=== PATIENT | male | born 1940 | race Caucasian/White ===

== ENCOUNTER 2017-12-20 14:44 | Inpatient (IN) ==
[2017-12-20] MEDS ORDERED: *HR* OxyCODONE Immed Rel 5 MG TABLET PO PRN (16:22)
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
[2017-12-20] MEDS: *HR* OxyCODONE Immed Rel 5 MG TABLET PO PRN (22:25)
[2017-12-20] MEDS: Budesonide/Formoterol 160/4.5 MDI IH SCH (22:25)
[2017-12-21] MEDS: *HR* OxyCODONE Immed Rel 5 MG TABLET PO PRN ×3 (03:48→22:13)
[2017-12-21 06:03] LABS: Basophils % 0.4 %; Eosinophils # 0.2 K/mcL (0.0-0.6); Eosinophils % 2.4 %; Hemoglobin 9.7 g/dL (12.9-16.9); Immature Granulocytes % 0.5 % (0-4); Lymphocytes # 1.3 K/mcL (0.6-4.6); Lymphocytes % 15.2 %; Mean Corpuscular HGB Conc 34.6 g/dL (31.6-35.5); Mean Corpuscular Hemoglobin 30.8 pg (28.0-33.3); Mean Corpuscular Volume 88.9 fL (83.0-100.0); Mean Platelet Volume 10.8 fL (9.4-12.4); Monocytes # 0.9 K/mcL (0.0-1.3); Monocytes % 10.4 %; Neutrophils # 5.9 K/mcL (1.6-8.9); Platelet Count 197 K/mcL (140-400); Red Blood Count 3.15 M/mcL (4.19-5.50); Red Cell Distribution Width 13.2 % (11.5-14.5); Segmented Neutrophils % 71.1 %
[2017-12-21 06:06] LABS: INR 1.2; Prothrombin Time 13.2 Seconds (9.4-12.1)
[2017-12-21 06:09] LABS: Activated Partial Thrombo Time 30.4 Seconds (26.0-36.0)
[2017-12-21 06:18] LABS: BUN/Creatinine Ratio 15 (6-26); Blood Urea Nitrogen 17 mg/dL (8-23); Calcium 8.4 mg/dL (8.6-10.3); Carbon Dioxide 28 mEq/L (23-29); Chloride 98 mEq/L (98-107); Glucose 131 mg/dL (70-105); Osmolality,Calculated 281 (280-300); Potassium 3.7 mEq/L (3.5-5.1); Sodium 134 mEq/L (136-145); eGFR For African Americans > 60 (> 60); eGFR For Non-African Americans > 60 (> 60)
[2017-12-21] MEDS: *HR* Enoxaparin 40 MG/0.4 ML SYRINGE SQ SCH (06:57)
[2017-12-21] MEDS: Finasteride 5 MG TABLET PO SCH (08:29)
[2017-12-21] MEDS: Ascorbic Acid 500 MG TABLET PO SCH (08:31)
[2017-12-21] MEDS: Cyanocobalamin (B-12) 1,000 MCG TABLET PO SCH (08:31)
[2017-12-21] MEDS: Aspirin Enteric Coated 81 MG Tablet PO SCH (08:31)
[2017-12-21] MEDS: Multivit/Ca/Min/Fe/FA 1 TAB TABLET PO SCH (08:31)
[2017-12-21] MEDS: Garlic [Odor Free Garlic] 100 MG PO SCH (08:33)
[2017-12-21] MEDS: Budesonide/Formoterol 160/4.5 MDI IH SCH ×2 (11:07→22:13)
--- NOTE | 2017-12-21 13:48 | Internal Med Progress Note ---
Date of Encounter: 12/21/17 Time of Encounter: 13:46 - Assessment and plan (1) Status post total knee replacement, left Current Visit: No Status: Acute Assessment and plan: Stable postoperatively. We will continue with therapies as planned. (2) History of aortic valve replacement Current Visit: No Status: Chronic Assessment and plan: Bovine of 12 years age. Clinically stable. We will continue home regimen and follow. (3) HTN (hypertension) Current Visit: No Status: Chronic Assessment and plan: Clinically stable. We will continue home regimen and follow. Qualifiers: Hypertension type: essential hypertension Qualified Code(s): I10 - Essential (primary) hypertension (4) BPH (benign prostatic hyperplasia) Current Visit: No Status: Chronic Assessment and plan: Will consider removal of Paredes and bladder trial, now that he has had a bowel movement. Qualifiers: Lower urinary tract symptom presence: symptoms absent Qualified Code(s): N40.0 - Benign prostatic hyperplasia without lower urinary tract symptoms (5) GERD (gastroesophageal reflux disease) Current Visit: No Status: Chronic Assessment and plan: Clinically stable. We will continue home regimen and follow. Qualifiers: Esophagitis presence: esophagitis presence not specified Qualified Code(s) : K21.9 - Gastro-esophageal reflux disease without esophagitis (6) Asthma Current Visit: No Status: Chronic Assessment and plan: Clinically stable. We will continue home regimen and follow. Qualifiers: Asthma severity: unspecified severity Asthma persistence: unspecified Asthma complication type: unspecified Qualified Code(s): J45.909 - Unspecified asthma, uncomplicated (7) Peripheral neuropathy Current Visit: No Status: Chronic Assessment and plan: Clinically stable. We will continue home regimen and follow. Qualifiers: Peripheral neuropathy type: polyneuropathy, unspecified Qualified Code(s): G62.9 - Polyneuropathy, unspecified (8) Anemia Current Visit: Yes Status: Acute Assessment and plan: Acute postoperative blood loss. Mild. Will follow. Qualifiers: Anemia type: other cause Other causes of anemia: acute posthemorrhagic Qualified Code(s): D62 - Acute posthemorrhagic anemia - Time Spent With Patient 25 - 35 minutes - Subjective Interval history: Patient is feeling relatively well. He feels his pain is adequately controlled. He denies new complaints. He still not had a bowel movement, even though he took prune juice this morning. He prefers to hold off on his rectal suppositories. Addendum: Nursing states that he had a bowel movement, this afternoon. - Constitutional Vitals: Temp Pulse Resp BP Pulse Ox 99.4 F 79 18 145/76 92 12/21/17 10:33 12/21/17 10:33 12/21/17 10:33 12/21/17 10:33 12/21/17 10:33 Exam: Examination: (Except as mentioned above): General: In no apparent distress. Alert and oriented 3. Nondiaphoretic. Head: Atraumatic and normocephalic. Respiratory: No use of accessory muscles. Lungs are clear throughout. Normal airflow. Cardiovascular: Regular rate and rhythm without murmur appreciated. Abdomen: Bowel sounds are normal. No hepatosplenomegaly mass or tenderness. He has a low abdominal hernia which is only seen with abdominal strain and easily reducible, spontaneously. appreciated. Obese and therefore difficult to palpate deeply. Extremities: No cyanosis clubbing or edema. No cord or calf tenderness. Skin: Warm and non-diaphoretic with no new lesions noted. Internal Medicine: Result - Labs CBC & Chem 7: 12/21/17 05:58 12/21/17 05:58 Labs: Short CBC 12/21/17 Range/Units 05:58 WBC 8.4 (4.3-11.1) K/mcL Hgb 9.7 L D (12.9-16.9) g/dL Hct 28.0 L (37.5-50.1) % Plt Count 197 (140-400) K/mcL Neutrophils # 5.9 (1.6-8.9) K/mcL BMP 12/21/17 05:58 Sodium 134 L Potassium 3.7 Chloride 98 Carbon Dioxide 28 BUN 17 Creatinine 1.17 Glucose 131 H Calcium 8.4 L - ABG Interpretation ABG results: PT/INR, D-dimer PT 13.2 Seconds (9.4-12.1) H 12/21/17 05:58 - VTE Documentation of Mechanical Device: Graduated compression elastic hosiery Consult Discharge Plan - Plan Referrals: Rivera John MD [Primary Care Provider] -
[2017-12-21] MEDS: Bisacodyl 10 MG RECTAL SUPPOSITORY RC SCH (15:48)
[2017-12-21] MEDS: Ondansetron ODT 4 MG TAB.RAPDIS SL PRN (23:09)
[2017-12-22] MEDS: *HR* Enoxaparin 40 MG/0.4 ML SYRINGE SQ SCH (06:14)
[2017-12-22] MEDS: *HR* OxyCODONE Immed Rel 5 MG TABLET PO PRN ×4 (06:18→22:33)
--- NOTE | 2017-12-22 06:54 | Internal Med Progress Note ---
Date of Encounter: 12/22/17 Time of Encounter: 06:51 - Assessment and plan (1) Status post total knee replacement, left Current Visit: No Status: Acute Assessment and plan: Because of erythema and low-grade temperature elevation and patient complaints, we will check a CBC, erythrocyte sedimentation rate, and begin empiric Keflex 500 mg 4 times a day. No therapies today based on schedule and will resume tomorrow. (2) History of aortic valve replacement Current Visit: No Status: Chronic Assessment and plan: Stable without cardiovascular signs or symptoms. (3) HTN (hypertension) Current Visit: No Status: Chronic Assessment and plan: Clinically stable. We will continue home regimen and follow. Qualifiers: Hypertension type: essential hypertension Qualified Code(s): I10 - Essential (primary) hypertension (4) BPH (benign prostatic hyperplasia) Current Visit: No Status: Chronic Assessment and plan: Will give him a trial of voiding. Qualifiers: Lower urinary tract symptom presence: symptoms absent Qualified Code(s): N40.0 - Benign prostatic hyperplasia without lower urinary tract symptoms (5) GERD (gastroesophageal reflux disease) Current Visit: No Status: Chronic Assessment and plan: Clinically stable. We will continue home regimen and follow. Qualifiers: Esophagitis presence: esophagitis presence not specified Qualified Code(s) : K21.9 - Gastro-esophageal reflux disease without esophagitis (6) Asthma Current Visit: No Status: Chronic Assessment and plan: Clinically stable. We will continue home regimen and follow. Qualifiers: Asthma severity: unspecified severity Asthma persistence: unspecified Asthma complication type: unspecified Qualified Code(s): J45.909 - Unspecified asthma, uncomplicated (7) Peripheral neuropathy Current Visit: No Status: Chronic Assessment and plan: Clinically stable. We will continue home regimen and follow. Qualifiers: Peripheral neuropathy type: polyneuropathy, unspecified Qualified Code(s): G62.9 - Polyneuropathy, unspecified (8) Anemia Current Visit: Yes Status: Acute Assessment and plan: Acute postoperative blood loss. Mild. Will follow. Qualifiers: Anemia type: other cause Other causes of anemia: acute posthemorrhagic Qualified Code(s): D62 - Acute posthemorrhagic anemia (9) Atelectasis Current Visit: Yes Status: Acute Assessment and plan: I explained use of incentive spirometry to him and told him this could be the cause of his fever. (He states that anything over 98.6 is a fever for him.) - Time Spent With Patient 25 - 35 minutes - Subjective Interval history: Patient is not feeling well, "all night." He is unable to localize many symptoms but notes that he is having right knee pain and just does not feel well. I told him that he had mild temperature elevation, he said that has a fever for me. He denies headache or chest pain, dyspnea, abdominal pain and had two bowel movement yesterday.. Patient has no complaint of chest discomfort, dyspnea, orthopnea, palpitations, nausea or vomiting, constipation or diarrhea, other changes in bowel habits, difficulty with urination, rash or itching, or other new complaints, except as mentioned above. Review of systems is otherwise unremarkable. - Constitutional Vitals: Temp Pulse Resp BP Pulse Ox 98.4 F 87 16 152/75 94 12/21/17 19:24 12/21/17 19:24 12/21/17 19:24 12/21/17 19:24 12/21/17 19:24 Exam: Examination: (Except as mentioned above): General: In no apparent distress. Alert and oriented 3. Nondiaphoretic. Head: Atraumatic and normocephalic. Respiratory: No use of accessory muscles. Lungs with bibasilar rales. Normal airflow. Cardiovascular: Regular rate and rhythm without murmur appreciated. Abdomen: Bowel sounds are normal. No hepatosplenomegaly mass or tenderness appreciated. Obese and therefore difficult to palpate deeply. Extremities: No cyanosis clubbing or edema. Right knee is not more erythematous but it is warmer than yesterday. There is no fluctuance or drainage. Wound is intact. No cord or calf tenderness. Skin: Warm and non-diaphoretic with no new lesions noted. Internal Medicine: Result - Labs CBC & Chem 7: 12/21/17 05:58 12/21/17 05:58 - ABG Interpretation ABG results: PT/INR, D-dimer PT 13.2 Seconds (9.4-12.1) H 12/21/17 05:58 - VTE Documentation of Mechanical Device: Graduated compression elastic hosiery Consult Discharge Plan - Plan Referrals: Rivera John MD [Primary Care Provider] -
[2017-12-22] MEDS: Multivit/Ca/Min/Fe/FA 1 TAB TABLET PO SCH (09:22)
[2017-12-22] MEDS: cephALEXin 500 MG CAPSULE PO SCH ×4 (09:22→22:09)
[2017-12-22] MEDS: Cyanocobalamin (B-12) 1,000 MCG TABLET PO SCH (09:22)
[2017-12-22] MEDS: Finasteride 5 MG TABLET PO SCH (09:22)
[2017-12-22] MEDS: Bisacodyl 10 MG RECTAL SUPPOSITORY RC SCH (09:23)
[2017-12-22] MEDS: Ascorbic Acid 500 MG TABLET PO SCH (09:23)
[2017-12-22] MEDS: Garlic [Odor Free Garlic] 100 MG PO SCH (09:23)
[2017-12-22] MEDS: Aspirin Enteric Coated 81 MG Tablet PO SCH (09:23)
[2017-12-22] MEDS: Budesonide/Formoterol 160/4.5 MDI IH SCH ×2 (09:29→22:34)
[2017-12-22 09:36] LABS: Basophils % 0.4 %; Eosinophils # 0.1 K/mcL (0.0-0.6); Eosinophils % 1.4 %; Immature Granulocytes % 0.4 % (0-4); Mean Corpuscular HGB Conc 34.5 g/dL (31.6-35.5); Mean Corpuscular Hemoglobin 30.6 pg (28.0-33.3); Mean Corpuscular Volume 88.7 fL (83.0-100.0); Mean Platelet Volume 10.3 fL (9.4-12.4); Monocytes # 0.8 K/mcL (0.0-1.3); Monocytes % 10.8 %; Neutrophils # 5.7 K/mcL (1.6-8.9); Platelet Count 236 K/mcL (140-400); Red Blood Count 3.27 M/mcL (4.19-5.50); Red Cell Distribution Width 13.3 % (11.5-14.5)
[2017-12-22] MEDS: Acetaminophen 325 MG TABLET PO PRN (16:57)
[2017-12-23] MEDS: *HR* OxyCODONE Immed Rel 5 MG TABLET PO PRN ×4 (04:31→20:05)
[2017-12-23] MEDS: Ondansetron ODT 4 MG TAB.RAPDIS SL PRN (04:32)
[2017-12-23] MEDS: *HR* Enoxaparin 40 MG/0.4 ML SYRINGE SQ SCH (06:13)
[2017-12-23 06:48] LABS: Basophils % 0.3 %; Eosinophils # 0.1 K/mcL (0.0-0.6); Eosinophils % 1.7 %; Hematocrit 28.3 % (37.5-50.1); Hemoglobin 9.6 g/dL (12.9-16.9); Immature Granulocytes % 0.5 % (0-4); Lymphocytes # 1.1 K/mcL (0.6-4.6); Lymphocytes % 14.2 %; Mean Corpuscular HGB Conc 33.9 g/dL (31.6-35.5); Mean Corpuscular Hemoglobin 30.3 pg (28.0-33.3); Mean Corpuscular Volume 89.3 fL (83.0-100.0); Mean Platelet Volume 10.4 fL (9.4-12.4); Monocytes # 0.9 K/mcL (0.0-1.3); Monocytes % 11.8 %; Neutrophils # 5.4 K/mcL (1.6-8.9); Platelet Count 256 K/mcL (140-400); Red Blood Count 3.17 M/mcL (4.19-5.50); Red Cell Distribution Width 13.3 % (11.5-14.5); Segmented Neutrophils % 71.5 %
[2017-12-23 07:09] LABS: BUN/Creatinine Ratio 16 (6-26); Blood Urea Nitrogen 16 mg/dL (8-23); Calcium 8.5 mg/dL (8.6-10.3); Carbon Dioxide 28 mEq/L (23-29); Chloride 99 mEq/L (98-107); Glucose 118 mg/dL (70-105); Osmolality,Calculated 274 (280-300); Potassium 4.2 mEq/L (3.5-5.1); Sodium 131 mEq/L (136-145); eGFR For African Americans > 60 (> 60); eGFR For Non-African Americans > 60 (> 60)
[2017-12-23] MEDS: Multivit/Ca/Min/Fe/FA 1 TAB TABLET PO SCH (09:16)
[2017-12-23] MEDS: Cyanocobalamin (B-12) 1,000 MCG TABLET PO SCH (09:17)
[2017-12-23] MEDS: Ascorbic Acid 500 MG TABLET PO SCH (09:17)
[2017-12-23] MEDS: cephALEXin 500 MG CAPSULE PO SCH ×4 (09:17→20:06)
[2017-12-23] MEDS: Aspirin Enteric Coated 81 MG Tablet PO SCH (09:17)
[2017-12-23] MEDS: Finasteride 5 MG TABLET PO SCH (09:17)
[2017-12-23] MEDS: Garlic [Odor Free Garlic] 100 MG PO SCH (09:18)
[2017-12-23] MEDS: Bisacodyl 10 MG RECTAL SUPPOSITORY RC SCH (09:18)
[2017-12-23] MEDS: Budesonide/Formoterol 160/4.5 MDI IH SCH ×2 (09:18→20:07)
--- NOTE | 2017-12-23 10:02 | Internal Med Progress Note ---
Date of Encounter: 12/23/17 Time of Encounter: 10:00 - Assessment and plan (1) Status post total knee replacement, left Current Visit: No Status: Acute Assessment and plan: Continue PT\OT. Will follow progress continue current pain regimen. Continue Keflex. (2) HTN (hypertension) Current Visit: No Status: Chronic Assessment and plan: Controlled with current medications. Will monitor blood pressure. Qualifiers: Hypertension type: essential hypertension Qualified Code(s): I10 - Essential (primary) hypertension - Time Spent With Patient less than 15 minutes - Subjective Interval history: Patient participating with therapy. States pain is controlled with current pain medication. Patient is on Keflex for increased drainage warmth and redness to left knee. Patient is requesting stool softener for constipation. Maintaining appetite and hydration. Denies fever, chills, nausea, vomiting or diarrhea. - Constitutional Vitals: Temp Pulse Resp BP Pulse Ox 98.9 F 69 14 142/87 93 12/23/17 07:00 12/23/17 07:00 12/23/17 07:00 12/23/17 07:00 12/23/17 07:00 General appearance: Present: A&O X 3, pleasant, no acute distress, answers questions appropriately - Head Head exam: Present: atraumatic, normocephalic - Eye Eye exam: Present: PERRL, conjuntiva pink, sclera anicteric Pupils: Present: PERRL - Neck Neck exam general surgery: Present: supple, trachea midline. Absent: lymphadenopathy - Respiratory Respiratory exam: Present: CTAB. Absent: accessory muscle use, rales, rhonchi, wheezes - Cardiovascular Cardiovascular exam: Present: RRR, +S1, +S2. Absent: diastolic murmur, gallop, rubs, systolic murmur - GI/Abdominal GI/Abdominal exam: Present: normal bowel sounds, soft, no peritoneal signs. Absent: distended, tenderness - Extremities Exam Extremities exam: Present: warm, radial pulses palpable and symmetrical. Absent : calf tenderness, cyanotic, pedal edema - Neurological Exam Neurological exam: Present: CN II-XII intact, oriented X3, no focal deficits. Absent: pronater drift, facial droop, speech deficit - Skin Skin exam: Present: dry, intact Additional comments: Left knee incision with moderate amount of drainage. Surrounding warmth redness , edema and ecchymosis. Internal Medicine: Result - Labs CBC & Chem 7: 12/23/17 06:15 12/23/17 06:15 Labs: Short CBC 12/23/17 Range/Units 06:15 WBC 7.6 (4.3-11.1) K/mcL Hgb 9.6 L (12.9-16.9) g/dL Hct 28.3 L (37.5-50.1) % Plt Count 256 (140-400) K/mcL Neutrophils # 5.4 (1.6-8.9) K/mcL BMP 12/23/17 06:15 Sodium 131 L Potassium 4.2 Chloride 99 Carbon Dioxide 28 BUN 16 Creatinine 1.00 Glucose 118 H Calcium 8.5 L - ABG Interpretation ABG results: PT/INR, D-dimer PT 13.2 Seconds (9.4-12.1) H 12/21/17 05:58 - VTE Documentation of Mechanical Device: Graduated compression elastic hosiery Consult Discharge Plan - Plan Referrals: Rivera John MD [Primary Care Provider] -
[2017-12-24] MEDS: *HR* Enoxaparin 40 MG/0.4 ML SYRINGE SQ SCH (06:00)
[2017-12-24] MEDS: *HR* OxyCODONE Immed Rel 5 MG TABLET PO PRN ×4 (06:00→20:16)
[2017-12-24] MEDS: Acetaminophen 325 MG TABLET PO PRN (08:08)
[2017-12-24] MEDS: Ascorbic Acid 500 MG TABLET PO SCH (08:09)
[2017-12-24] MEDS: Multivit/Ca/Min/Fe/FA 1 TAB TABLET PO SCH (08:09)
[2017-12-24] MEDS: cephALEXin 500 MG CAPSULE PO SCH ×4 (08:09→20:17)
[2017-12-24] MEDS: Cyanocobalamin (B-12) 1,000 MCG TABLET PO SCH (08:10)
[2017-12-24] MEDS: Finasteride 5 MG TABLET PO SCH (08:11)
[2017-12-24] MEDS: Aspirin Enteric Coated 81 MG Tablet PO SCH (08:11)
[2017-12-24] MEDS: Bisacodyl 10 MG RECTAL SUPPOSITORY RC SCH (08:12)
[2017-12-24] MEDS: Garlic [Odor Free Garlic] 100 MG PO SCH (08:12)
[2017-12-24] MEDS: Budesonide/Formoterol 160/4.5 MDI IH SCH ×2 (08:14→20:20)
--- NOTE | 2017-12-24 11:15 | Internal Med Progress Note ---
Date of Encounter: 12/24/17 Time of Encounter: 11:12 - Assessment and plan (1) Status post total knee replacement, left Current Visit: No Status: Acute Assessment and plan: Continue PT\OT. Stating increased pain. Will increase OxyContin IR to 10 mg every 4 hours as needed.. Continue Keflex. Therapy reporting decreased flexion. Recommending CPM machine. (2) HTN (hypertension) Current Visit: No Status: Chronic Assessment and plan: Controlled with current medications. Will monitor blood pressure. Qualifiers: Hypertension type: essential hypertension Qualified Code(s): I10 - Essential (primary) hypertension - Time Spent With Patient less than 15 minutes - Subjective Interval history: Patient participating with therapy. Patient states pain is not controlled with current pain medication. Having pain from groin all the way to ankle on left lower extremity. Patient is on Keflex for increased drainage warmth and redness to left knee, look slightly improved today.. Patient is requesting suppository constipation. States last bowel movement was 4 days ago. Maintaining appetite and hydration. Denies fever, chills, nausea, vomiting or diarrhea. - Constitutional Vitals: Temp Pulse Resp BP Pulse Ox 98.5 F 75 18 124/72 96 12/23/17 18:53 12/23/17 18:53 12/23/17 18:53 12/23/17 18:53 12/23/17 18:53 General appearance: Present: A&O X 3, pleasant, no acute distress, answers questions appropriately - Head Head exam: Present: atraumatic, normocephalic - Eye Eye exam: Present: PERRL, conjuntiva pink, sclera anicteric Pupils: Present: PERRL - Neck Neck exam general surgery: Present: supple, trachea midline. Absent: lymphadenopathy - Respiratory Respiratory exam: Present: CTAB. Absent: accessory muscle use, rales, rhonchi, wheezes - Cardiovascular Cardiovascular exam: Present: RRR, +S1, +S2. Absent: diastolic murmur, gallop, rubs, systolic murmur - GI/Abdominal GI/Abdominal exam: Present: normal bowel sounds, soft, no peritoneal signs. Absent: distended, tenderness - Extremities Exam Extremities exam: Present: warm, radial pulses palpable and symmetrical. Absent : calf tenderness, cyanotic, pedal edema - Incison Incision: Present: draining, red, swollen, erythema - Neurological Exam Neurological exam: Present: CN II-XII intact, oriented X3, no focal deficits. Absent: pronater drift, facial droop, speech deficit - Skin Skin exam: Present: dry, intact Internal Medicine: Result - Labs CBC & Chem 7: 12/23/17 06:15 12/23/17 06:15 - ABG Interpretation ABG results: PT/INR, D-dimer PT 13.2 Seconds (9.4-12.1) H 12/21/17 05:58 - VTE Documentation of Mechanical Device: Graduated compression elastic hosiery Consult Discharge Plan - Plan Referrals: Rivera John MD [Primary Care Provider] -
[2017-12-25] MEDS: *HR* OxyCODONE Immed Rel 5 MG TABLET PO PRN ×5 (01:19→20:54)
[2017-12-25] MEDS: *HR* Enoxaparin 40 MG/0.4 ML SYRINGE SQ SCH (06:34)
[2017-12-25] MEDS: Finasteride 5 MG TABLET PO SCH (09:19)
[2017-12-25] MEDS: Multivit/Ca/Min/Fe/FA 1 TAB TABLET PO SCH (09:19)
[2017-12-25] MEDS: Aspirin Enteric Coated 81 MG Tablet PO SCH (09:20)
[2017-12-25] MEDS: Ascorbic Acid 500 MG TABLET PO SCH ×2 (09:20→09:21)
[2017-12-25] MEDS: Acetaminophen 325 MG TABLET PO PRN (09:20)
[2017-12-25] MEDS: cephALEXin 500 MG CAPSULE PO SCH ×4 (09:21→20:53)
[2017-12-25] MEDS: tiZANidine 4 MG TABLET PO PRN ×2 (09:25→20:55)
[2017-12-25] MEDS: Cyanocobalamin (B-12) 1,000 MCG TABLET PO SCH (09:26)
[2017-12-25] MEDS: Budesonide/Formoterol 160/4.5 MDI IH SCH ×2 (09:26→20:54)
[2017-12-25] MEDS: Bisacodyl 10 MG RECTAL SUPPOSITORY RC SCH (10:58)
[2017-12-25] MEDS: Garlic [Odor Free Garlic] 100 MG PO SCH (10:58)
[2017-12-25 13:32] LABS: Alanine Aminotransferase 17 Units/L (7-52); Albumin 3.4 g/dL (3.5-5.7); Albumin/Globulin Ratio 1.3 (1.1-2.2); Alkaline Phosphatase 58 Units/L (34-104); Aspartate Amino Transferase 23 Units/L (13-39); BUN/Creatinine Ratio 21 (6-26); Bilirubin,Total 1.1 mg/dL (0.3-1.0); Blood Urea Nitrogen 23 mg/dL (8-23); Calcium 8.7 mg/dL (8.6-10.3); Carbon Dioxide 26 mEq/L (23-29); Chloride 99 mEq/L (98-107); Globulin 2.7 g/dL (2.4-3.5); Glucose 157 mg/dL (70-105); Osmolality,Calculated 277 (280-300); Potassium 4.2 mEq/L (3.5-5.1); Sodium 130 mEq/L (136-145); Total Protein 6.1 g/dL (6.4-8.9); eGFR For African Americans > 60 (> 60); eGFR For Non-African Americans > 60 (> 60)
--- NOTE | 2017-12-25 16:44 | Internal Med Progress Note ---
Date of Encounter: 12/25/17 Time of Encounter: 14:00 - Assessment and plan (1) Status post total knee replacement, left Current Visit: No Status: Acute Assessment and plan: He seems stable. He is tolerating therapies and participating well. He is on his third day of Keflex and we will continue this, knowing he has an orthopedic appointment, tomorrow. (2) History of aortic valve replacement Current Visit: No Status: Chronic Assessment and plan: Bovine and at least 11 years old. Stable without cardiovascular signs or symptoms. (3) HTN (hypertension) Current Visit: No Status: Chronic Assessment and plan: Clinically stable. We will continue home regimen and follow. Qualifiers: Hypertension type: essential hypertension Qualified Code(s): I10 - Essential (primary) hypertension (4) BPH (benign prostatic hyperplasia) Current Visit: No Status: Chronic Assessment and plan: He seems to be voiding well with minimal residual yesterday. Qualifiers: Lower urinary tract symptom presence: symptoms absent Qualified Code(s): N40.0 - Benign prostatic hyperplasia without lower urinary tract symptoms (5) GERD (gastroesophageal reflux disease) Current Visit: No Status: Chronic Assessment and plan: Clinically stable. We will continue home regimen and follow. Qualifiers: Esophagitis presence: esophagitis presence not specified Qualified Code(s) : K21.9 - Gastro-esophageal reflux disease without esophagitis (6) Asthma Current Visit: No Status: Chronic Assessment and plan: Clinically stable. We will continue home regimen and follow. Qualifiers: Asthma severity: unspecified severity Asthma persistence: unspecified Asthma complication type: unspecified Qualified Code(s): J45.909 - Unspecified asthma, uncomplicated (7) Peripheral neuropathy Current Visit: No Status: Chronic Assessment and plan: Clinically stable. We will continue home regimen and follow. Qualifiers: Peripheral neuropathy type: polyneuropathy, unspecified Qualified Code(s): G62.9 - Polyneuropathy, unspecified (8) Anemia Current Visit: Yes Status: Acute Assessment and plan: Acute postoperative blood loss. Mild. Will follow. Qualifiers: Anemia type: other cause Other causes of anemia: acute posthemorrhagic Qualified Code(s): D62 - Acute posthemorrhagic anemia (9) Atelectasis Current Visit: Yes Status: Acute Assessment and plan: Clinically improved..) - Time Spent With Patient 25 - 35 minutes - Subjective Interval history: Patient is feeling somewhat better but still feels like he is not getting around as well as he would like to. His pain is still significant, especially with therapy. He continues to move his bowels but wished she was doing better. He denies other acute issues. Patient has no complaint of chest discomfort, dyspnea, orthopnea, palpitations, nausea or vomiting, constipation or diarrhea, other changes in bowel habits, difficulty with urination, rash or itching, or other new complaints, except as mentioned above. Review of systems is otherwise unremarkable. - Constitutional Vitals: Temp Pulse Resp BP Pulse Ox 99.5 F 85 16 128/62 92 12/25/17 07:00 12/25/17 07:00 12/25/17 07:00 12/25/17 07:00 12/25/17 07:00 General appearance: Present: A&O X 3, pleasant, no acute distress, answers questions appropriately Exam: Examination: (Except as mentioned above): General: In no apparent distress. Alert and oriented 3. Nondiaphoretic. Head: Atraumatic and normocephalic. Respiratory: No use of accessory muscles. Lungs are clear throughout. Normal airflow. Cardiovascular: Regular rate and rhythm without murmur appreciated. Abdomen: Bowel sounds are normal. No hepatosplenomegaly mass or tenderness appreciated. Obese and therefore difficult to palpate deeply. Extremities: No cyanosis clubbing or edema. His knee and lower extremity are slightly less erythematous and warm than the last couple of days. Skin: Warm and non-diaphoretic with no new lesions noted. Internal Medicine: Result - Labs CBC & Chem 7: 12/23/17 06:15 12/25/17 12:56 Labs: BMP 12/25/17 12:56 Sodium 130 L Potassium 4.2 Chloride 99 Carbon Dioxide 26 BUN 23 Creatinine 1.09 Glucose 157 H Calcium 8.7 Liver Function 12/25/17 Range/Units 12:56 Total Bilirubin 1.1 H (0.3-1.0) mg/dL AST 23 (13-39) Units/L ALT 17 (7-52) Units/L Alkaline Phosphatase 58 (34-104) Units/L Albumin 3.4 L (3.5-5.7) g/dL - ABG Interpretation ABG results: PT/INR, D-dimer PT 13.2 Seconds (9.4-12.1) H 12/21/17 05:58 - VTE Documentation of Mechanical Device: Graduated compression elastic hosiery Consult Discharge Plan - Plan Referrals: Rivera John MD [Primary Care Provider] -
[2017-12-26] MEDS: *HR* OxyCODONE Immed Rel 5 MG TABLET PO PRN ×5 (00:58→22:05)
[2017-12-26] MEDS: *HR* Enoxaparin 40 MG/0.4 ML SYRINGE SQ SCH (05:08)
[2017-12-26] MEDS: Budesonide/Formoterol 160/4.5 MDI IH SCH ×2 (07:15→20:02)
--- NOTE | 2017-12-26 07:20 | Internal Med Progress Note ---
Date of Encounter: 12/26/17 Time of Encounter: 07:17 - Assessment and plan (1) Status post total knee replacement, left Current Visit: No Status: Acute Assessment and plan: He seems stable. He is tolerating therapies and participating well. Sedimentation rate and CRP are still elevated but white count was normal at last assessment. He is on his fourth day of Keflex and we will anticipate the input of : Cedrick should additional management change be indicated. Postoperative constipation persists. We are trying to optimize his bowel regimen and encouraging fluid intake. (2) History of aortic valve replacement Current Visit: No Status: Chronic Assessment and plan: Bovine and at least 11 years old. Stable without cardiovascular signs or symptoms. (3) HTN (hypertension) Current Visit: No Status: Chronic Assessment and plan: Clinically stable. We will continue home regimen and follow. Qualifiers: Hypertension type: essential hypertension Qualified Code(s): I10 - Essential (primary) hypertension (4) BPH (benign prostatic hyperplasia) Current Visit: No Status: Chronic Assessment and plan: He continues to void well, per him.. Qualifiers: Lower urinary tract symptom presence: symptoms absent Qualified Code(s): N40.0 - Benign prostatic hyperplasia without lower urinary tract symptoms (5) GERD (gastroesophageal reflux disease) Current Visit: No Status: Chronic Assessment and plan: Clinically stable. We will continue home regimen and follow. Qualifiers: Esophagitis presence: esophagitis presence not specified Qualified Code(s) : K21.9 - Gastro-esophageal reflux disease without esophagitis (6) Asthma Current Visit: No Status: Chronic Assessment and plan: Clinically stable. We will continue home regimen and follow. Qualifiers: Asthma severity: unspecified severity Asthma persistence: unspecified Asthma complication type: unspecified Qualified Code(s): J45.909 - Unspecified asthma, uncomplicated (7) Peripheral neuropathy Current Visit: No Status: Chronic Assessment and plan: Clinically stable. We will continue home regimen and follow. Qualifiers: Peripheral neuropathy type: polyneuropathy, unspecified Qualified Code(s): G62.9 - Polyneuropathy, unspecified (8) Anemia Current Visit: Yes Status: Acute Assessment and plan: Acute postoperative blood loss. Mild. Will continue to follow. Qualifiers: Anemia type: other cause Other causes of anemia: acute posthemorrhagic Qualified Code(s): D62 - Acute posthemorrhagic anemia (9) Atelectasis Current Visit: Yes Status: Acute Assessment and plan: Clinically resolved. - Time Spent With Patient 25 - 35 minutes - Subjective Interval history: Patient is generally feeling well. He has an appointment this morning with his orthopedist. He is still somewhat short of breath and feels intermittently constipated, plans to use a suppository after his return from his appointment. He denies other acute issues. Patient has no complaint of chest discomfort, dyspnea, orthopnea, palpitations, nausea or vomiting, constipation or diarrhea, other changes in bowel habits, difficulty with urination, rash or itching, or other new complaints, except as mentioned above. Review of systems is otherwise unremarkable. - Constitutional Vitals: Temp Pulse Resp BP Pulse Ox 98.7 F 73 16 138/69 95 12/26/17 06:57 12/26/17 06:57 12/26/17 06:57 12/26/17 06:57 12/26/17 06:57 General appearance: Present: A&O X 3, pleasant, no acute distress, answers questions appropriately Exam: Examination: (Except as mentioned above): General: In no apparent distress. Alert and oriented 3. Nondiaphoretic. Head: Atraumatic and normocephalic. Respiratory: No use of accessory muscles. Lungs are clear throughout. Normal airflow. Cardiovascular: Regular rate and rhythm without murmur appreciated. Abdomen: Bowel sounds are normal. No hepatosplenomegaly mass or tenderness appreciated. Obese and therefore difficult to palpate deeply. Patient is examined upright in bed and this also limits exam. Extremities: No cyanosis or clubbing. His left pretibial area is still with some edema and markedly erythematous but not as warm as yesterday. It seems as if he has no more drainage since yesterday. He has no areas of fluctuance or loculation. Skin: Warm and non-diaphoretic with no new lesions noted. Internal Medicine: Result - Labs CBC & Chem 7: 12/23/17 06:15 12/25/17 12:56 Labs: BMP 12/25/17 12:56 Sodium 130 L Potassium 4.2 Chloride 99 Carbon Dioxide 26 BUN 23 Creatinine 1.09 Glucose 157 H Calcium 8.7 Liver Function 12/25/17 Range/Units 12:56 Total Bilirubin 1.1 H (0.3-1.0) mg/dL AST 23 (13-39) Units/L ALT 17 (7-52) Units/L Alkaline Phosphatase 58 (34-104) Units/L Albumin 3.4 L (3.5-5.7) g/dL - ABG Interpretation ABG results: PT/INR, D-dimer PT 13.2 Seconds (9.4-12.1) H 12/21/17 05:58 - VTE Documentation of Mechanical Device: Graduated compression elastic hosiery Consult Discharge Plan - Plan Referrals: Rivera John MD [Primary Care Provider] -
[2017-12-26] MEDS: cephALEXin 500 MG CAPSULE PO SCH ×4 (12:57→20:00)
[2017-12-26] MEDS: Aspirin Enteric Coated 81 MG Tablet PO SCH (12:57)
[2017-12-26] MEDS: Finasteride 5 MG TABLET PO SCH (12:57)
[2017-12-26] MEDS: Cyanocobalamin (B-12) 1,000 MCG TABLET PO SCH (12:58)
[2017-12-26] MEDS: Ascorbic Acid 500 MG TABLET PO SCH (12:58)
[2017-12-26] MEDS: Bisacodyl 10 MG RECTAL SUPPOSITORY RC SCH (12:58)
[2017-12-26] MEDS: Multivit/Ca/Min/Fe/FA 1 TAB TABLET PO SCH (12:58)
[2017-12-26] MEDS: Garlic [Odor Free Garlic] 100 MG PO SCH (12:58)
[2017-12-26] MEDS: Acetaminophen 325 MG TABLET PO PRN (20:01)
[2017-12-27] MEDS: *HR* Enoxaparin 40 MG/0.4 ML SYRINGE SQ SCH (05:14)
[2017-12-27] MEDS: *HR* OxyCODONE Immed Rel 5 MG TABLET PO PRN ×4 (05:16→18:14)
[2017-12-27] MEDS: Acetaminophen 325 MG TABLET PO PRN ×2 (08:10→21:52)
[2017-12-27] MEDS: Aspirin Enteric Coated 81 MG Tablet PO SCH (08:10)
[2017-12-27] MEDS: Ascorbic Acid 500 MG TABLET PO SCH (08:10)
[2017-12-27] MEDS: Multivit/Ca/Min/Fe/FA 1 TAB TABLET PO SCH (08:10)
[2017-12-27] MEDS: Finasteride 5 MG TABLET PO SCH (08:10)
[2017-12-27] MEDS: cephALEXin 500 MG CAPSULE PO SCH ×4 (08:10→21:51)
[2017-12-27] MEDS: Cyanocobalamin (B-12) 1,000 MCG TABLET PO SCH (08:10)
[2017-12-27] MEDS: Bisacodyl 10 MG RECTAL SUPPOSITORY RC SCH (08:11)
[2017-12-27] MEDS: Budesonide/Formoterol 160/4.5 MDI IH SCH ×2 (08:11→21:53)
[2017-12-27] MEDS: Garlic [Odor Free Garlic] 100 MG PO SCH (08:11)
--- NOTE | 2017-12-27 10:51 | Internal Med Progress Note ---
Date of Encounter: 12/27/17 Time of Encounter: 10:49 - Assessment and plan (1) Status post total knee replacement, left Current Visit: No Status: Acute Assessment and plan: No acute issues. Patient continues to have antalgic pain during range of motion. Patient states that his pain does limit his therapy. We will reevaluate patient's current pain regimen. Left knee remains somewhat swollen with ecchymosis, but incision remains dry and intact. Patient was evaluated by orthopedics. Duplex was negative. Patient inflammation markers remain elevated. Patient will continue on Keflex. (2) History of aortic valve replacement Current Visit: No Status: Chronic Assessment and plan: No acute issues. Continued systolic murmur left sternal base 11/26. Lungs are clear. Patient denies any palpitations or chest discomforts. We will continue with therapy and current plan of care (3) HTN (hypertension) Current Visit: No Status: Chronic Assessment and plan: Vital signs are stable. We will continue with current medications. Qualifiers: Hypertension type: essential hypertension Qualified Code(s): I10 - Essential (primary) hypertension (4) BPH (benign prostatic hyperplasia) Current Visit: No Status: Chronic Assessment and plan: No acute issues. Patient states that he is voiding without difficulty. We will continue on current medications Qualifiers: Lower urinary tract symptom presence: symptoms absent Qualified Code(s): N40.0 - Benign prostatic hyperplasia without lower urinary tract symptoms - Time Spent With Patient less than 15 minutes - Subjective Interval history: Patient continues to complain of pain to left knee which increases during mobilization. Left knee continues to have moderate swelling and noted ecchymosis surrounding surgical site. Surgical site remains dry and intact. Patient states he continues to become fatigued during mobilization. - Constitutional Vitals: Temp Pulse Resp BP Pulse Ox 98.7 F 75 16 108/55 94 12/27/17 07:00 12/27/17 07:00 12/27/17 07:00 12/26/17 19:00 12/27/17 07:00 General appearance: Present: A&O X 3, pleasant, no acute distress, answers questions appropriately - Head Head exam: Present: atraumatic, normocephalic - Eye Eye exam: Present: PERRL, conjuntiva pink, sclera anicteric Pupils: Present: PERRL - Neck Neck exam general surgery: Present: supple, trachea midline. Absent: lymphadenopathy - Respiratory Respiratory exam: Present: CTAB. Absent: accessory muscle use, rales, rhonchi, wheezes Additional comments: Diminished breath sounds to basilar [place] - Cardiovascular Cardiovascular exam: Present: RRR, +S1, +S2. Absent: diastolic murmur, gallop, rubs, systolic murmur - GI/Abdominal GI/Abdominal exam: Present: normal bowel sounds, soft, no peritoneal signs. Absent: distended, tenderness - Extremities Exam Extremities exam: Present: warm, radial pulses palpable and symmetrical. Absent : calf tenderness, cyanotic, pedal edema Additional comments: Left knee continues with moderate swelling and ecchymosis. Slight antalgic pain with range of motion - Neurological Exam Neurological exam: Present: CN II-XII intact, oriented X3, no focal deficits. Absent: pronater drift, facial droop, speech deficit - Skin Skin exam: Present: dry, intact Internal Medicine: Result - Labs CBC & Chem 7: 12/23/17 06:15 12/25/17 12:56 - ABG Interpretation ABG results: PT/INR, D-dimer PT 13.2 Seconds (9.4-12.1) H 12/21/17 05:58 - VTE Documentation of Mechanical Device: Graduated compression elastic hosiery Consult Discharge Plan - Plan Referrals: Rivera John MD [Primary Care Provider] -
[2017-12-28] MEDS: *HR* OxyCODONE Immed Rel 5 MG TABLET PO PRN ×4 (00:33→18:48)
[2017-12-28] MEDS: *HR* Enoxaparin 40 MG/0.4 ML SYRINGE SQ SCH (05:43)
[2017-12-28 05:46] LABS: Eosinophils % 2.4 %; Hematocrit 28.5 % (37.5-50.1); Hemoglobin 9.6 g/dL (12.9-16.9); Immature Granulocytes % 0.5 % (0-4); Mean Corpuscular HGB Conc 33.7 g/dL (31.6-35.5); Mean Corpuscular Hemoglobin 29.8 pg (28.0-33.3); Mean Corpuscular Volume 88.5 fL (83.0-100.0); Mean Platelet Volume 9.4 fL (9.4-12.4); Monocytes % 10.5 %; Platelet Count 325 K/mcL (140-400); Red Blood Count 3.22 M/mcL (4.19-5.50); Red Cell Distribution Width 13.3 % (11.5-14.5); Segmented Neutrophils % 74.3 %
[2017-12-28 05:47] LABS: Basophils % 0.3 %; Eosinophils # 0.2 K/mcL (0.0-0.6); Monocytes # 0.8 K/mcL (0.0-1.3); Neutrophils # 5.9 K/mcL (1.6-8.9)
[2017-12-28 06:02] LABS: Alanine Aminotransferase 14 Units/L (7-52); Albumin 3.2 g/dL (3.5-5.7); Albumin/Globulin Ratio 1.3 (1.1-2.2); Alkaline Phosphatase 56 Units/L (34-104); Aspartate Amino Transferase 17 Units/L (13-39); BUN/Creatinine Ratio 19 (6-26); Blood Urea Nitrogen 17 mg/dL (8-23); Calcium 8.7 mg/dL (8.6-10.3); Carbon Dioxide 28 mEq/L (23-29); Chloride 102 mEq/L (98-107); Globulin 2.5 g/dL (2.4-3.5); Glucose 115 mg/dL (70-105); Magnesium 2.3 mg/dL (1.6-2.6); Osmolality,Calculated 282 (280-300); Potassium 4.2 mEq/L (3.5-5.1); Sodium 135 mEq/L (136-145); Total Protein 5.7 g/dL (6.4-8.9); eGFR For African Americans > 60 (> 60); eGFR For Non-African Americans > 60 (> 60)
[2017-12-28] MEDS: cephALEXin 500 MG CAPSULE PO SCH ×4 (08:18→22:18)
[2017-12-28] MEDS: Cyanocobalamin (B-12) 1,000 MCG TABLET PO SCH (08:18)
[2017-12-28] MEDS: Garlic [Odor Free Garlic] 100 MG PO SCH (08:18)
[2017-12-28] MEDS: Multivit/Ca/Min/Fe/FA 1 TAB TABLET PO SCH (08:18)
[2017-12-28] MEDS: Bisacodyl 10 MG RECTAL SUPPOSITORY RC SCH (08:18)
[2017-12-28] MEDS: Finasteride 5 MG TABLET PO SCH (08:18)
[2017-12-28] MEDS: Ascorbic Acid 500 MG TABLET PO SCH (08:18)
[2017-12-28] MEDS: Aspirin Enteric Coated 81 MG Tablet PO SCH (08:18)
[2017-12-28] MEDS: Acetaminophen 325 MG TABLET PO PRN ×2 (08:32→22:19)
[2017-12-28] MEDS: tiZANidine 4 MG TABLET PO PRN ×3 (08:32→22:16)
[2017-12-28] MEDS ORDERED: Ipratropium/Albuterol Neb 3 ML IH PRN (16:02)
[2017-12-28] MEDS ORDERED: Saline Nasal Spray 44 ML BOTTLE NS PRN (16:08)
--- NOTE | 2017-12-28 16:10 | Internal Med Progress Note ---
Date of Encounter: 12/28/17 Time of Encounter: 16:06 - Assessment and plan (1) Status post total knee replacement, left Current Visit: No Status: Acute Assessment and plan: No acute issues. Patient continues to have antalgic pain during range of motion. Patient states that his pain does limit his therapy. We will reevaluate patient's current pain regimen. Left knee remains somewhat swollen with ecchymosis, but incision remains dry and intact. Patient was evaluated by orthopedics. Duplex was negative. Patient inflammation markers remain elevated. Patient will continue on Keflex. (2) HTN (hypertension) Current Visit: No Status: Chronic Assessment and plan: Vital signs are stable. We will continue with current medications. Qualifiers: Hypertension type: essential hypertension Qualified Code(s): I10 - Essential (primary) hypertension (3) BPH (benign prostatic hyperplasia) Current Visit: No Status: Chronic Assessment and plan: No acute issues. Patient states that he is voiding without difficulty. We will continue on current medications Qualifiers: Lower urinary tract symptom presence: symptoms absent Qualified Code(s): N40.0 - Benign prostatic hyperplasia without lower urinary tract symptoms (4) Asthma Current Visit: No Status: Chronic Assessment and plan: controlled, and no wheezing on my examination today. -PRN DuoNeb -[place] nasal mist -will continue to monitor his cough Qualifiers: Asthma severity: unspecified severity Asthma persistence: unspecified Asthma complication type: unspecified Qualified Code(s): J45.909 - Unspecified asthma, uncomplicated (5) GERD (gastroesophageal reflux disease) Current Visit: No Status: Chronic Assessment and plan: stable, continue same management Qualifiers: Esophagitis presence: esophagitis presence not specified Qualified Code(s) : K21.9 - Gastro-esophageal reflux disease without esophagitis (6) Anemia Current Visit: Yes Status: Acute Assessment and plan: Hgb stable Qualifiers: Anemia type: other cause Other causes of anemia: acute posthemorrhagic Qualified Code(s): D62 - Acute posthemorrhagic anemia - Time Spent With Patient 25 - 35 minutes - Subjective Interval history: Complains that he is now coughing, productive. knee pain tolerable. Other review of system - Constitutional Vitals: Temp Pulse Resp BP Pulse Ox 98.5 F 75 16 147/73 92 12/28/17 07:00 12/28/17 07:00 12/28/17 07:00 12/28/17 07:00 12/28/17 07:00 General appearance: Present: A&O X 3, pleasant, no acute distress, answers questions appropriately - Head Head exam: Present: atraumatic, normocephalic - Eye Eye exam: Present: PERRL, conjuntiva pink, sclera anicteric Pupils: Present: PERRL - Neck Neck exam general surgery: Present: supple, trachea midline. Absent: lymphadenopathy - Respiratory Respiratory exam: Present: CTAB. Absent: accessory muscle use, rales, rhonchi, wheezes - Cardiovascular Cardiovascular exam: Present: RRR, +S1, +S2. Absent: diastolic murmur, gallop, rubs, systolic murmur - GI/Abdominal GI/Abdominal exam: Present: normal bowel sounds, soft, no peritoneal signs. Absent: distended, tenderness - Extremities Exam Extremities exam: Present: pedal edema, warm, radial pulses palpable and symmetrical. Absent: calf tenderness, cyanotic Additional comments: left lower extremity with +1 pitting edema. Vertical knee incision, intact. Some linear discoloration on the left toes - Neurological Exam Neurological exam: Present: CN II-XII intact, oriented X3, no focal deficits. Absent: pronater drift, facial droop, speech deficit - Skin Skin exam: Present: dry, intact Internal Medicine: Result - Labs CBC & Chem 7: 12/28/17 05:35 12/28/17 05:35 Labs: Short CBC 12/28/17 Range/Units 05:35 WBC 8.0 (4.3-11.1) K/mcL Hgb 9.6 L (12.9-16.9) g/dL Hct 28.5 L (37.5-50.1) % Plt Count 325 (140-400) K/mcL Neutrophils # 5.9 (1.6-8.9) K/mcL BMP 12/28/17 05:35 Sodium 135 L Potassium 4.2 Chloride 102 Carbon Dioxide 28 BUN 17 Creatinine 0.88 Glucose 115 H Calcium 8.7 Liver Function 12/28/17 Range/Units 05:35 Total Bilirubin 1.0 (0.3-1.0) mg/dL AST 17 (13-39) Units/L ALT 14 (7-52) Units/L Alkaline Phosphatase 56 (34-104) Units/L Albumin 3.2 L (3.5-5.7) g/dL - ABG Interpretation ABG results: PT/INR, D-dimer PT 13.2 Seconds (9.4-12.1) H 12/21/17 05:58 - VTE Documentation of Mechanical Device: Graduated compression elastic hosiery Consult Discharge Plan - Plan Referrals: Rivera John MD [Primary Care Provider] -
[2017-12-28] MEDS: Budesonide/Formoterol 160/4.5 MDI IH SCH ×2 (16:11→22:21)
[2017-12-28] MEDS ORDERED: Bisacodyl 10 MG RECTAL SUPPOSITORY RC PRN (16:29)
[2017-12-28 18:11] LABS: C-Reactive Protein 105 mg/L (Less than 10)
[2017-12-29] MEDS: *HR* OxyCODONE Immed Rel 5 MG TABLET PO PRN ×4 (01:56→20:07)
[2017-12-29] MEDS: *HR* Enoxaparin 40 MG/0.4 ML SYRINGE SQ SCH (07:01)
[2017-12-29] MEDS: Acetaminophen 325 MG TABLET PO PRN (09:17)
[2017-12-29] MEDS: Sennosides 8.6 MG TABLET PO SCH (09:18)
[2017-12-29] MEDS: cephALEXin 500 MG CAPSULE PO SCH ×4 (09:18→20:07)
[2017-12-29] MEDS: tiZANidine 4 MG TABLET PO PRN ×2 (09:18→15:19)
[2017-12-29] MEDS: Finasteride 5 MG TABLET PO SCH (09:18)
[2017-12-29] MEDS: Multivit/Ca/Min/Fe/FA 1 TAB TABLET PO SCH (09:18)
[2017-12-29] MEDS: Cyanocobalamin (B-12) 1,000 MCG TABLET PO SCH (09:18)
[2017-12-29] MEDS: Aspirin Enteric Coated 81 MG Tablet PO SCH (09:18)
[2017-12-29] MEDS: Ascorbic Acid 500 MG TABLET PO SCH (09:19)
[2017-12-29] MEDS: Garlic [Odor Free Garlic] 100 MG PO SCH (09:20)
[2017-12-29] MEDS: Budesonide/Formoterol 160/4.5 MDI IH SCH ×2 (10:13→20:09)
[2017-12-29] MEDS: Bisacodyl 10 MG RECTAL SUPPOSITORY RC SCH (11:39)
--- NOTE | 2017-12-29 13:12 | Internal Med Progress Note ---
Date of Encounter: 12/29/17 Time of Encounter: 13:01 - Assessment and plan (1) Status post total knee replacement, left Current Visit: No Status: Acute Assessment and plan: -No acute issues. -continue on Keflex. -PT limited due to pain -now on scheduled Tramadol 25mg prior to therapy (2) HTN (hypertension) Current Visit: No Status: Chronic Assessment and plan: Vital signs are stable. We will continue with current medications. Qualifiers: Hypertension type: essential hypertension Qualified Code(s): I10 - Essential (primary) hypertension (3) BPH (benign prostatic hyperplasia) Current Visit: No Status: Chronic Assessment and plan: No acute issues. Patient states that he is voiding without difficulty. We will continue on current medications Qualifiers: Lower urinary tract symptom presence: symptoms absent Qualified Code(s): N40.0 - Benign prostatic hyperplasia without lower urinary tract symptoms (4) Asthma Current Visit: No Status: Chronic Assessment and plan: controlled, and no wheezing on my examination today. -PRN DuoNeb -now will have a scheduled duoneb prior to therapy in the mornings -[facility] nasal mist will be scheduled QID 12/29/17 -will continue to monitor his cough Qualifiers: Asthma severity: unspecified severity Asthma persistence: unspecified Asthma complication type: unspecified Qualified Code(s): J45.909 - Unspecified asthma, uncomplicated (5) GERD (gastroesophageal reflux disease) Current Visit: No Status: Chronic Assessment and plan: stable, continue same management Qualifiers: Esophagitis presence: esophagitis presence not specified Qualified Code(s) : K21.9 - Gastro-esophageal reflux disease without esophagitis (6) Anemia Current Visit: Yes Status: Acute Assessment and plan: Hgb stable Qualifiers: Anemia type: other cause Other causes of anemia: acute posthemorrhagic Qualified Code(s): D62 - Acute posthemorrhagic anemia - Time Spent With Patient 25 - 35 minutes - Subjective Interval history: Complains that he is now coughing, productive. knee pain tolerable. Other review of system Unable to participate with therapy in the morning due to pain and shortness of breath his nasal passages remain clogged, and he hasn't used the nasal saline spray No wheezing reported other ROS neg - Constitutional Vitals: Temp Pulse Resp BP Pulse Ox 98.3 F 70 16 158/87 92 12/29/17 06:51 12/29/17 06:51 12/29/17 06:51 12/29/17 06:51 12/29/17 06:51 General appearance: Present: A&O X 3, pleasant, no acute distress, answers questions appropriately - Head Head exam: Present: atraumatic, normocephalic - Eye Eye exam: Present: PERRL, conjuntiva pink, sclera anicteric Pupils: Present: PERRL - Neck Neck exam general surgery: Present: supple, trachea midline. Absent: lymphadenopathy - Respiratory Respiratory exam: Present: CTAB. Absent: accessory muscle use, rales, rhonchi, wheezes - Cardiovascular Cardiovascular exam: Present: RRR, +S1, +S2. Absent: diastolic murmur, gallop, rubs, systolic murmur - GI/Abdominal GI/Abdominal exam: Present: normal bowel sounds, soft, no peritoneal signs. Absent: distended, tenderness - Extremities Exam Extremities exam: Present: pedal edema, warm, radial pulses palpable and symmetrical. Absent: calf tenderness, cyanotic Additional comments: Left lower knee wrapped today, and +1 pitting edema below the knee. No changes on the skin bluish streaking found on the left lower food - Neurological Exam Neurological exam: Present: CN II-XII intact, oriented X3, no focal deficits. Absent: pronater drift, facial droop, speech deficit - Skin Skin exam: Present: dry, intact Internal Medicine: Result - Labs CBC & Chem 7: 12/28/17 05:35 12/28/17 05:35 - ABG Interpretation ABG results: PT/INR, D-dimer PT 13.2 Seconds (9.4-12.1) H 12/21/17 05:58 - VTE Documentation of Mechanical Device: Graduated compression elastic hosiery Consult Discharge Plan - Plan Referrals: Rivera John MD [Primary Care Provider] -
[2017-12-29] MEDS: Saline Nasal Spray 44 ML BOTTLE NS SCH ×2 (15:16→22:02)
[2017-12-30] MEDS: *HR* OxyCODONE Immed Rel 5 MG TABLET PO PRN ×5 (00:05→20:23)
[2017-12-30] MEDS: *HR* Enoxaparin 40 MG/0.4 ML SYRINGE SQ SCH (05:04)
[2017-12-30 06:45] LABS: Basophils % 0.5 %; Eosinophils # 0.3 K/mcL (0.0-0.6); Eosinophils % 3.4 %; Hematocrit 28.7 % (37.5-50.1); Hemoglobin 9.8 g/dL (12.9-16.9); Immature Granulocytes % 0.6 % (0-4); Lymphocytes # 1.3 K/mcL (0.6-4.6); Lymphocytes % 14.9 %; Mean Corpuscular HGB Conc 34.1 g/dL (31.6-35.5); Mean Corpuscular Hemoglobin 30.3 pg (28.0-33.3); Mean Corpuscular Volume 88.9 fL (83.0-100.0); Mean Platelet Volume 9.6 fL (9.4-12.4); Monocytes # 0.7 K/mcL (0.0-1.3); Monocytes % 8.8 %; Platelet Count 350 K/mcL (140-400); Red Blood Count 3.23 M/mcL (4.19-5.50); Red Cell Distribution Width 13.2 % (11.5-14.5); Segmented Neutrophils % 71.8 %
[2017-12-30 07:00] LABS: BUN/Creatinine Ratio 15 (6-26); Blood Urea Nitrogen 15 mg/dL (8-23); Calcium 8.8 mg/dL (8.6-10.3); Carbon Dioxide 26 mEq/L (23-29); Chloride 100 mEq/L (98-107); Glucose 119 mg/dL (70-105); Osmolality,Calculated 274 (280-300); Potassium 4.1 mEq/L (3.5-5.1); Sodium 131 mEq/L (136-145); eGFR For African Americans > 60 (> 60); eGFR For Non-African Americans > 60 (> 60)
[2017-12-30] MEDS: Sennosides 8.6 MG TABLET PO SCH (08:34)
[2017-12-30] MEDS: Finasteride 5 MG TABLET PO SCH (08:34)
[2017-12-30] MEDS: Aspirin Enteric Coated 81 MG Tablet PO SCH (08:34)
[2017-12-30] MEDS: Saline Nasal Spray 44 ML BOTTLE NS SCH ×4 (08:34→20:23)
[2017-12-30] MEDS: cephALEXin 500 MG CAPSULE PO SCH ×4 (08:34→20:22)
[2017-12-30] MEDS: Garlic [Odor Free Garlic] 100 MG PO SCH (08:34)
[2017-12-30] MEDS: Cyanocobalamin (B-12) 1,000 MCG TABLET PO SCH (08:35)
[2017-12-30] MEDS: Multivit/Ca/Min/Fe/FA 1 TAB TABLET PO SCH (08:35)
[2017-12-30] MEDS ORDERED: traMADol 50 MG TABLET PO SCH (09:00)
[2017-12-30] MEDS: Budesonide/Formoterol 160/4.5 MDI IH SCH ×2 (10:05→20:24)
[2017-12-30] MEDS: Ipratropium/Albuterol Neb 3 ML IH SCH (10:05)
--- NOTE | 2017-12-30 10:10 | Internal Med Progress Note ---
Date of Encounter: 12/30/17 Time of Encounter: 10:07 - Assessment and plan (1) Status post total knee replacement, left Current Visit: No Status: Acute Assessment and plan: Patient continues to have antalgic pain. Patient states that his pain does limit his therapy. Patient started on pain medication scheduled prior to his therapy which he states, but that he is still in too much pain for therapy. We will reevaluate patient's current pain regimen. Left knee remains somewhat swollen with ecchymosis, but incision remains dry and intact. Patient was evaluated by orthopedics. Duplex was negative. Patient inflammation markers remain elevated. Patient will continue on Keflex. (2) History of aortic valve replacement Current Visit: No Status: Chronic Assessment and plan: No acute issues. Continued systolic murmur left sternal base 11/26. Lungs are clear. Patient denies any palpitations or chest discomforts. We will continue with therapy and current plan of care (3) HTN (hypertension) Current Visit: No Status: Chronic Assessment and plan: Vital signs are stable. We will continue with current medications. Qualifiers: Hypertension type: essential hypertension Qualified Code(s): I10 - Essential (primary) hypertension (4) BPH (benign prostatic hyperplasia) Current Visit: No Status: Chronic Assessment and plan: No acute issues. Patient states that he is voiding without difficulty. We will continue on current medications Qualifiers: Lower urinary tract symptom presence: symptoms absent Qualified Code(s): N40.0 - Benign prostatic hyperplasia without lower urinary tract symptoms - Time Spent With Patient less than 15 minutes - Subjective Interval history: Patient continues to complain of pain to left knee which increases during mobilization. Left knee continues to have moderate swelling and noted ecchymosis surrounding surgical site. Surgical site remains dry and intact. Patient also complains of nausea this morning after his breakfast. Patient denies any vomiting. - Constitutional Vitals: Temp Pulse Resp BP Pulse Ox 98.7 F 85 16 143/86 98 12/30/17 07:38 12/30/17 07:38 12/30/17 07:38 12/30/17 07:38 12/30/17 07:38 General appearance: Present: A&O X 3, pleasant, no acute distress, answers questions appropriately - Head Head exam: Present: atraumatic, normocephalic - Eye Eye exam: Present: PERRL, conjuntiva pink, sclera anicteric Pupils: Present: PERRL - Neck Neck exam general surgery: Present: supple, trachea midline. Absent: lymphadenopathy - Respiratory Respiratory exam: Present: CTAB. Absent: accessory muscle use, rales, rhonchi, wheezes - Cardiovascular Cardiovascular exam: Present: RRR, +S1, +S2. Absent: diastolic murmur, gallop, rubs, systolic murmur Additional comments: Systolic murmur at the left sternal base. 11/26 - GI/Abdominal GI/Abdominal exam: Present: normal bowel sounds, soft, no peritoneal signs. Absent: distended, tenderness - Extremities Exam Extremities exam: Present: warm, radial pulses palpable and symmetrical. Absent : calf tenderness, cyanotic, pedal edema Additional comments: Left knee remains swollen with ecchymosis surrounding surgical site. Surgical incision appears dry and intact. Increased tenderness during range of motion - Neurological Exam Neurological exam: Present: CN II-XII intact, oriented X3, no focal deficits. Absent: pronater drift, facial droop, speech deficit - Skin Skin exam: Present: dry, intact Internal Medicine: Result - Labs CBC & Chem 7: 12/30/17 05:45 12/30/17 05:45 Labs: Short CBC 12/30/17 Range/Units 05:45 WBC 8.4 (4.3-11.1) K/mcL Hgb 9.8 L (12.9-16.9) g/dL Hct 28.7 L (37.5-50.1) % Plt Count 350 (140-400) K/mcL Neutrophils # 6.0 (1.6-8.9) K/mcL BMP 12/30/17 05:45 Sodium 131 L Potassium 4.1 Chloride 100 Carbon Dioxide 26 BUN 15 Creatinine 1.00 Glucose 119 H Calcium 8.8 - ABG Interpretation ABG results: PT/INR, D-dimer PT 13.2 Seconds (9.4-12.1) H 12/21/17 05:58 - VTE Documentation of Mechanical Device: Graduated compression elastic hosiery Consult Discharge Plan - Plan Referrals: Rivera John MD [Primary Care Provider] -
[2017-12-30] MEDS: traMADol 50 MG TABLET PO SCH (12:08)
[2017-12-31] MEDS: *HR* OxyCODONE Immed Rel 5 MG TABLET PO PRN ×3 (03:16→12:27)
[2017-12-31] MEDS: *HR* Enoxaparin 40 MG/0.4 ML SYRINGE SQ SCH (04:49)
[2017-12-31] MEDS: tiZANidine 4 MG TABLET PO PRN (04:50)
[2017-12-31 07:35] VITALS: BP 132/74
[2017-12-31] MEDS: Finasteride 5 MG TABLET PO SCH (08:49)
[2017-12-31] MEDS: traMADol 50 MG TABLET PO SCH (08:49)
[2017-12-31] MEDS: cephALEXin 500 MG CAPSULE PO SCH (08:50)
[2017-12-31] MEDS: Sennosides 8.6 MG TABLET PO SCH (08:50)
[2017-12-31] MEDS: Aspirin Enteric Coated 81 MG Tablet PO SCH (08:50)
[2017-12-31] MEDS: Cyanocobalamin (B-12) 1,000 MCG TABLET PO SCH (08:50)
[2017-12-31] MEDS: Multivit/Ca/Min/Fe/FA 1 TAB TABLET PO SCH (08:50)
[2017-12-31] MEDS: Saline Nasal Spray 44 ML BOTTLE NS SCH (08:55)
[2017-12-31] MEDS: Garlic [Odor Free Garlic] 100 MG PO SCH (08:55)
[2017-12-31] MEDS: Budesonide/Formoterol 160/4.5 MDI IH SCH (08:55)
[2017-12-31] MEDS: Ipratropium/Albuterol Neb 3 ML IH SCH (10:48)
--- NOTE | 2017-12-31 10:55 | Discharge Summary ---
Orders not resulted at time of discharge: Pending orders 01/06/18 04:00 Activated Partial Thrombo Time [COAG] MO Basic Metabolic Panel MO Complete Blood Count [HEME] MO Date of Encounter: 12/31/17 Time of Encounter: 10:48 - Discharge Diagnosis (1) Status post total knee replacement, left Priority: Primary Status: Acute Comments: continue home PT. follow up with ortho as scheduled. (2) HTN (hypertension) Priority: Secondary Status: Chronic Comments: continue current meds. Qualifiers: Hypertension type: essential hypertension Qualified Code(s): I10 - Essential (primary) hypertension Hospital course: Mr. Perez is a 77 year old male Discharge discussed with: patient - Time Spent with Patient Total time spent providing and/or coordinating discharge services: Less than 30 minutes - Discharge Medications Home Medications: Albuterol Sulfate [Ventolin Hfa] 2 puff IH Q4H PRN 05/30/17 [History] Ascorbic Acid [Vitamin C] 1,000 mg PO DAILY 05/30/17 [History] Aspirin [Lo-Dose Aspirin EC] 81 mg PO DAILY 05/30/17 [History] Budesonide/Formoterol 160/4.5 [Symbicort 160/4.5] 2 puff IH BIDR 05/30/17 [ History] Calcium Carbonate [Calcium] 600 mg PO DAILY 05/30/17 [History] Cyanocobalamin (Vitamin B-12) [Vitamin B-12] 1,000 mcg SL DAILY 05/30/17 [ History] Finasteride [Proscar] 5 mg PO DAILY 05/30/17 [History] Garlic [Odor Free Garlic] 100 mg PO DAILY 05/30/17 [History] Irbesartan [Avapro] 300 mg PO DAILY 05/30/17 [History] Multivitamin [One Daily Multivitamin] 1 each PO DAILY 05/30/17 [History] Pantoprazole Sodium 40 mg PO DAILY 05/30/17 [History] Sertraline [Zoloft] 100 mg PO DAILY 05/30/17 [History] Tamsulosin [Flomax] 0.8 mg PO DAILY 05/30/17 [History] OxyCODONE Immed Rel [Roxicodone 5 MG] 5 mg PO Q6HR PRN 7 Days #28 tablet [Rx] Acetaminophen [Tylenol] 650 mg PO Q6HR PRN tablet 12/31/17 [Rx] Albuterol Sulfate [Albuterol Inhaler] 2 puff IH Q4H PRN inhaler 12/31/17 [Rx] Bethanechol [Urecholine] 12.5 mg PO TID tablet 12/31/17 [Rx] Docusate [Colace] 100 mg PO BID capsule 12/31/17 [Rx] OxyCODONE Immed Rel [Roxicodone 5 MG] 10 mg PO Q4HR PRN 5 Days #20 tablet [Rx] Polyethylene Glycol 3350 [MiraLAX] 17 gm PO DAILY powd.pack 12/31/17 [Rx] Saline Nasal [place] [[place] Nasal [place]] 2 spray NS QID bottle 12/31/17 [Rx] Allergies/Adverse Reactions: 3 Allergy/AdvReac Type Severity Reaction Status Date / Time No Known Allergies Allergy Verified 05/30/17 08:11 Date of admission: 12/20/17 16:12 Primary care physician: Rivera John MD Consults: 12/20/17 16:28 Consult to Occupational Therapy [CONS] Routine Comment: Evaluate, develop and implement POC Reason for Consult: LTKR Does patient have active BEDREST order?: No Is patient medically & hemodynamically stable?: Yes Patient assessed for mobility or mobilized this visit?: Yes Consult to Physical Medicine/Rehab [CONS] Routine Reason for Consult: LTKR Call Completed: No Consult to Physical Therapy [CONS] Routine Comment: Evaluate, develop and implement POC Reason for Consult: Left Total Knee replacement Does patient have active BEDREST order?: No Is patient medically & hemodynamically stable?: Yes Patient assessed for mobility or mobilized this visit?: Yes Discharging clinician: Manuel Zapata Anticipated date of discharge: 12/31/17 - Constitutional Vitals: Temp Pulse Resp BP Pulse Ox 98.2 F 73 14 132/74 96 12/31/17 07:00 12/31/17 07:00 12/31/17 07:00 12/31/17 07:00 12/31/17 07:00 General appearance: Present: A&O X 3, pleasant, no acute distress, answers questions appropriately - Head Head exam: Present: atraumatic, normocephalic - Eye Eye exam: Present: PERRL, conjuntiva pink, sclera anicteric Pupils: Present: PERRL - Neck Neck exam general surgery: Present: supple, trachea midline. Absent: lymphadenopathy - Respiratory Respiratory exam: Present: CTAB. Absent: accessory muscle use, rales, rhonchi, wheezes - Cardiovascular Cardiovascular exam: Present: RRR, +S1, +S2. Absent: diastolic murmur, gallop, rubs, systolic murmur - GI/Abdominal GI/Abdominal exam: Present: normal bowel sounds, soft, no peritoneal signs. Absent: distended, tenderness - Extremities Exam Extremities exam: Present: warm, radial pulses palpable and symmetrical. Absent : calf tenderness, cyanotic, pedal edema - [place] Comments: surgical incision to left knee dry and intact. mod swelling and ecchymosis to surrounding area. - Neurological Exam Neurological exam: Present: CN II-XII intact, oriented X3, no focal deficits. Absent: pronater drift, facial droop, speech deficit - Skin Skin exam: Present: dry, intact - Patient Status Disposition: Home Health Service Condition: Good Overall status at discharge: patient is back to baseline - Discharge Instructions Follow Up With: Rivera John MD [Primary Care Provider] - - Diet and Activity Activity: as per physical therapy Diet: advance to your usual diet - VTE Documentation of Mechanical Device: Graduated compression elastic hosiery
--- NOTE | 2017-12-31 10:59 | Physician Discharge Referral ---
Home Health/Hosp Referral Info Transfer to: Home Health Provider in Charge Post Discharge: PCP - Diagnosis (1) Status post total knee replacement, left Priority: Primary Status: Acute (2) HTN (hypertension) Priority: Secondary Status: Chronic - Respiratory Orders Smoking Cessation: Smoking cessation has been advised. For more information, call the [place] Tobacco Quit Line at 7-745-ROAB-NOW. - Diet/Nutrition Diet/Nutrition Orders: Regular - Activity Activity Orders: Ambulate, Walker - Services Needed Following services are medically necessary services: Nursing, Physical Therapy - Transfer Medications Home Medications: Albuterol Sulfate [Ventolin Hfa] 2 puff IH Q4H PRN 05/30/17 [History] Ascorbic Acid [Vitamin C] 1,000 mg PO DAILY 05/30/17 [History] Aspirin [Lo-Dose Aspirin EC] 81 mg PO DAILY 05/30/17 [History] Budesonide/Formoterol 160/4.5 [Symbicort 160/4.5] 2 puff IH BIDR 05/30/17 [ History] Calcium Carbonate [Calcium] 600 mg PO DAILY 05/30/17 [History] Cyanocobalamin (Vitamin B-12) [Vitamin B-12] 1,000 mcg SL DAILY 05/30/17 [ History] Finasteride [Proscar] 5 mg PO DAILY 05/30/17 [History] Garlic [Odor Free Garlic] 100 mg PO DAILY 05/30/17 [History] Irbesartan [Avapro] 300 mg PO DAILY 05/30/17 [History] Multivitamin [One Daily Multivitamin] 1 each PO DAILY 05/30/17 [History] Pantoprazole Sodium 40 mg PO DAILY 05/30/17 [History] Sertraline [Zoloft] 100 mg PO DAILY 05/30/17 [History] Tamsulosin [Flomax] 0.8 mg PO DAILY 05/30/17 [History] OxyCODONE Immed Rel [Roxicodone 5 MG] 5 mg PO Q6HR PRN 7 Days #28 tablet [Rx] Acetaminophen [Tylenol] 650 mg PO Q6HR PRN tablet 12/31/17 [Rx] Albuterol Sulfate [Albuterol Inhaler] 2 puff IH Q4H PRN inhaler 12/31/17 [Rx] Bethanechol [Urecholine] 12.5 mg PO TID tablet 12/31/17 [Rx] Docusate [Colace] 100 mg PO BID capsule 12/31/17 [Rx] OxyCODONE Immed Rel [Roxicodone 5 MG] 10 mg PO Q4HR PRN 5 Days #20 tablet [Rx] Polyethylene Glycol 3350 [MiraLAX] 17 gm PO DAILY powd.pack 12/31/17 [Rx] Saline Nasal [place] [[place] Nasal [place]] 2 spray NS QID bottle 12/31/17 [Rx] Allergies/Adverse Reactions: 3 Allergy/AdvReac Type Severity Reaction Status Date / Time No Known Allergies Allergy Verified 05/30/17 08:11 Certification: Further, I certify that my clinical findings support that this patient is homebound (i.e. absences from home require considerable and taxing effort and are for medical reasons or holiness services or infrequently or short duration when for other reasons) because: Homebound Reason: Patient requires assistance of a person or device to safely leave home, Post-surgery restriction and or conditions limit ability to leave home Attestation: My signature below is to certify that this patient is under my care and that I, or nurse practitioner, or a physician's timber management assistant working with me, has a face-to -face encounter with this patient.
== END 2017-12-31 13:20 | disposition home health service (06) | DRG 560 ==
LOC: INPGRE 16:12

== ENCOUNTER 2021-01-17 14:03 | Observation (INO) ==
[2021-01-17] MEDS ORDERED: 0.9 % Sodium Chloride 1,000 ML IV ONE ×2 (14:20→16:24)
[2021-01-17] MEDS ORDERED: Ondansetron 4 MG/2 ML VIAL IVP ONE (14:20)
[2021-01-17 14:22] LABS: Basophils % 0.2 %; Eosinophils # 0.1 K/mcL (0.0-0.6); Eosinophils % 1.6 %; Hematocrit 42.5 % (37.5-50.1); Hemoglobin 13.4 g/dL (12.9-16.9); Immature Granulocytes % 0.3 % (0-4); Lymphocytes % 10.8 %; Mean Corpuscular HGB Conc 31.5 g/dL (31.6-35.5); Mean Corpuscular Hemoglobin 27.9 pg (28.0-33.3); Mean Corpuscular Volume 88.4 fL (83.0-100.0); Monocytes # 0.8 K/mcL (0.0-1.3); Monocytes % 9.2 %; Platelet Count 207 K/mcL (140-400); Red Blood Count 4.81 M/mcL (4.19-5.50); Red Cell Distribution Width 14.1 % (11.5-14.5); Segmented Neutrophils % 77.9 %
[2021-01-17 14:28] LABS: INR 2.3; Prothrombin Time 25.8 Seconds (9.4-12.1)
[2021-01-17 14:38] LABS: Albumin 3.4 g/dL (3.5-5.7); Albumin/Globulin Ratio 1.4 (1.1-2.2); Bilirubin,Total 0.7 mg/dL (0.3-1.0); Calcium 7.9 mg/dL (8.6-10.3); Globulin 2.4 g/dL (2.4-3.5); Potassium 4.1 mEq/L (3.5-5.1); Total Protein 5.8 g/dL (6.4-8.9)
[2021-01-17 14:39] LABS: Magnesium 2.2 mg/dL (1.6-2.6); Phosphorous 4.2 mg/dL (2.7-4.5)
[2021-01-17 14:41] LABS: Troponin I < 0.03 ng/mL (< 0.04)
[2021-01-17] MEDS ORDERED: Isovue-370 500 ML BOTTLE IVP ONE (15:21)
[2021-01-17 17:17] LABS: Bilirubin,Urine Negative (Negative); Blood,Urine Negative (Negative); Clarity,Urine Clear (Clear); Color,Urine Yellow (Yellow); Glucose,Urine (UA) Normal (Normal); Ketones,Urine Negative (Negative); Leukocyte Esterase,Urine Trace (Negative); Nitrite,Urine Negative (Negative); Protein,Urine Negative (Neg-Trace); Urobilinogen,Urine Normal (Normal)
[2021-01-17 17:21] LABS: Bacteria,Urine Few per hpf (None-Few); RBC,Urine 0-3 per hpf (0-3)
[2021-01-17] MEDS ORDERED: Albuterol 2.5 MG/3 ML NEBULIZER IH PRN (18:11)
[2021-01-17] MEDS ORDERED: Naloxone 0.4 MG/ML INJ IVP PRN (18:11)
[2021-01-17] MEDS: Ondansetron ODT 4 MG TAB.RAPDIS SL SCH (20:09)
[2021-01-17] MEDS: Budesonide/Formoterol 160/4.5 1 PUFF INH IH SCH (23:20)
[2021-01-18] MEDS ORDERED: 0.9 % Sodium Chloride 1,000 ML IVC SCH (00:15)
[2021-01-18] MEDS: Acetaminophen 325 MG TABLET PO PRN (00:23)
[2021-01-18] MEDS: Ondansetron ODT 4 MG TAB.RAPDIS SL SCH ×4 (00:25→16:55)
[2021-01-18 04:45] LABS: Basophils % 0.3 %; Eosinophils # 0.2 K/mcL (0.0-0.6); Hematocrit 36.8 % (37.5-50.1); Immature Granulocytes % 0.4 % (0-4); Lymphocytes # 1.2 K/mcL (0.6-4.6); Lymphocytes % 17.2 %; Mean Corpuscular HGB Conc 31.5 g/dL (31.6-35.5); Mean Corpuscular Hemoglobin 27.8 pg (28.0-33.3); Mean Platelet Volume 11.4 fL (9.4-12.4); Monocytes # 0.8 K/mcL (0.0-1.3); Monocytes % 11.7 %; Neutrophils # 4.6 K/mcL (1.6-8.9); Platelet Count 155 K/mcL (140-400); Red Blood Count 4.18 M/mcL (4.19-5.50); Red Cell Distribution Width 14.4 % (11.5-14.5); Segmented Neutrophils % 67.4 %; White Blood Count 6.8 K/mcL (4.3-11.1)
[2021-01-18 04:46] LABS: Hemoglobin 11.6 g/dL (12.9-16.9)
[2021-01-18 04:58] LABS: Calcium 7.3 mg/dL (8.6-10.3); Potassium 4.2 mEq/L (3.5-5.1)
[2021-01-18] MEDS ORDERED: predniSONE 10 MG TABLET PO SCH (09:00)
[2021-01-18] MEDS: lisinopriL 20 MG TABLET PO SCH (09:06)
[2021-01-18] MEDS: Multivit/Ca/Min/Fe/FA 1 TAB TABLET PO SCH (09:07)
[2021-01-18] MEDS: Aspirin Enteric Coated 81 MG Tablet PO SCH (09:07)
[2021-01-18] MEDS: Finasteride 5 MG TABLET PO SCH (09:07)
[2021-01-18] MEDS: *HR* Rivaroxaban 15 MG TABLET PO SCH (09:07)
[2021-01-18] MEDS: Budesonide/Formoterol 160/4.5 1 PUFF INH IH SCH ×2 (10:08→19:26)
[2021-01-18] MEDS: Hydrocortisone Sodium Succ 100 MG/2 ML VIAL IVP SCH ×2 (12:14→20:35)
[2021-01-19] MEDS: Ondansetron ODT 4 MG TAB.RAPDIS SL SCH ×4 (00:10→18:02)
[2021-01-19 04:37] LABS: Hematocrit 38.2 % (37.5-50.1); Hemoglobin 12.2 g/dL (12.9-16.9); Mean Corpuscular HGB Conc 31.9 g/dL (31.6-35.5); Mean Corpuscular Hemoglobin 27.7 pg (28.0-33.3); Mean Corpuscular Volume 86.8 fL (83.0-100.0); Mean Platelet Volume 11.1 fL (9.4-12.4); Platelet Count 162 K/mcL (140-400); Red Cell Distribution Width 13.9 % (11.5-14.5); White Blood Count 7.5 K/mcL (4.3-11.1)
[2021-01-19 04:53] LABS: BUN/Creatinine Ratio 15 (6-26); Blood Urea Nitrogen 17 mg/dL (8-23); Calcium 7.5 mg/dL (8.6-10.3); Carbon Dioxide 24 mEq/L (23-29); Chloride 106 mEq/L (98-107); Glucose 129 mg/dL (70-105); Osmolality,Calculated 285 (280-300); Sodium 136 mEq/L (136-145); eGFR For African Americans > 60 (> 60); eGFR For Non-African Americans > 60 (> 60)
[2021-01-19] MEDS: Hydrocortisone Sodium Succ 100 MG/2 ML VIAL IVP SCH ×2 (05:07→12:13)
[2021-01-19] MEDS: Acetaminophen 325 MG TABLET PO PRN (05:09)
[2021-01-19] MEDS: lisinopriL 20 MG TABLET PO SCH (09:06)
[2021-01-19] MEDS: Multivit/Ca/Min/Fe/FA 1 TAB TABLET PO SCH (09:06)
[2021-01-19] MEDS: Aspirin Enteric Coated 81 MG Tablet PO SCH (09:06)
[2021-01-19] MEDS: Finasteride 5 MG TABLET PO SCH (09:07)
[2021-01-19] MEDS: *HR* Rivaroxaban 15 MG TABLET PO SCH (09:07)
[2021-01-19] MEDS: Budesonide/Formoterol 160/4.5 1 PUFF INH IH SCH ×2 (09:37→21:32)
[2021-01-20] MEDS: Ondansetron ODT 4 MG TAB.RAPDIS SL SCH ×4 (00:10→19:08)
[2021-01-20] MEDS: lisinopriL 20 MG TABLET PO SCH (08:14)
[2021-01-20] MEDS: Multivit/Ca/Min/Fe/FA 1 TAB TABLET PO SCH (08:14)
[2021-01-20] MEDS: Aspirin Enteric Coated 81 MG Tablet PO SCH (08:14)
[2021-01-20] MEDS: Finasteride 5 MG TABLET PO SCH (08:15)
[2021-01-20] MEDS: *HR* Rivaroxaban 15 MG TABLET PO SCH (08:15)
[2021-01-20] MEDS: predniSONE 20 MG TABLET PO SCH (08:15)
[2021-01-20] MEDS: Budesonide/Formoterol 160/4.5 1 PUFF INH IH SCH ×2 (09:08→21:59)
[2021-01-21] MEDS: Ondansetron ODT 4 MG TAB.RAPDIS SL SCH ×4 (00:15→17:21)
[2021-01-21] MEDS: *HR* Rivaroxaban 15 MG TABLET PO SCH (09:19)
[2021-01-21] MEDS: lisinopriL 20 MG TABLET PO SCH (09:19)
[2021-01-21] MEDS: Finasteride 5 MG TABLET PO SCH (09:19)
[2021-01-21] MEDS: Multivit/Ca/Min/Fe/FA 1 TAB TABLET PO SCH (09:19)
[2021-01-21] MEDS: Aspirin Enteric Coated 81 MG Tablet PO SCH (09:20)
[2021-01-21] MEDS: predniSONE 20 MG TABLET PO SCH (09:20)
[2021-01-21] MEDS: Budesonide/Formoterol 160/4.5 1 PUFF INH IH SCH ×2 (10:09→21:21)
[2021-01-22] MEDS: Ondansetron ODT 4 MG TAB.RAPDIS SL SCH ×4 (00:04→16:40)
[2021-01-22] MEDS: *HR* Rivaroxaban 15 MG TABLET PO SCH (07:55)
[2021-01-22] MEDS: predniSONE 20 MG TABLET PO SCH (07:55)
[2021-01-22] MEDS: lisinopriL 20 MG TABLET PO SCH (07:56)
[2021-01-22] MEDS: Multivit/Ca/Min/Fe/FA 1 TAB TABLET PO SCH (07:56)
[2021-01-22] MEDS: Aspirin Enteric Coated 81 MG Tablet PO SCH (07:56)
[2021-01-22] MEDS: Finasteride 5 MG TABLET PO SCH (07:56)
[2021-01-22] MEDS: Budesonide/Formoterol 160/4.5 1 PUFF INH IH SCH ×2 (09:25→21:33)
[2021-01-23] MEDS: Ondansetron ODT 4 MG TAB.RAPDIS SL SCH ×3 (00:16→12:01)
[2021-01-23 04:58] LABS: Hematocrit 36.5 % (37.5-50.1); Hemoglobin 11.7 g/dL (12.9-16.9); Mean Corpuscular HGB Conc 32.1 g/dL (31.6-35.5); Mean Corpuscular Hemoglobin 27.7 pg (28.0-33.3); Mean Corpuscular Volume 86.3 fL (83.0-100.0); Mean Platelet Volume 11.4 fL (9.4-12.4); Platelet Count 144 K/mcL (140-400); Red Blood Count 4.23 M/mcL (4.19-5.50); Red Cell Distribution Width 13.9 % (11.5-14.5); White Blood Count 6.7 K/mcL (4.3-11.1)
[2021-01-23 05:17] LABS: Alanine Aminotransferase 48 Units/L (7-52); Albumin/Globulin Ratio 1.7 (1.1-2.2); Alkaline Phosphatase 45 Units/L (34-104); Aspartate Amino Transferase 31 Units/L (13-39); BUN/Creatinine Ratio 21 (6-26); Bilirubin,Total 0.5 mg/dL (0.3-1.0); Blood Urea Nitrogen 22 mg/dL (8-23); Calcium 7.7 mg/dL (8.6-10.3); Carbon Dioxide 25 mEq/L (23-29); Chloride 107 mEq/L (98-107); Globulin 1.8 g/dL (2.4-3.5); Glucose 90 mg/dL (70-105); Osmolality,Calculated 291 (280-300); Potassium 3.4 mEq/L (3.5-5.1); Sodium 139 mEq/L (136-145); Total Protein 4.8 g/dL (6.4-8.9); eGFR For African Americans > 60 (> 60); eGFR For Non-African Americans > 60 (> 60)
[2021-01-23] MEDS ORDERED: CloNIDine Patch 0.1 MG PATCH (WEEKLY) TD SCH (09:15)
[2021-01-23] MEDS: predniSONE 20 MG TABLET PO SCH (10:20)
[2021-01-23] MEDS: Multivit/Ca/Min/Fe/FA 1 TAB TABLET PO SCH (10:20)
[2021-01-23] MEDS: *HR* Rivaroxaban 15 MG TABLET PO SCH (10:20)
[2021-01-23] MEDS: Aspirin Enteric Coated 81 MG Tablet PO SCH (10:20)
[2021-01-23] MEDS: Finasteride 5 MG TABLET PO SCH (10:21)
[2021-01-23] MEDS: lisinopriL 20 MG TABLET PO SCH (10:21)
[2021-01-23] MEDS: Budesonide/Formoterol 160/4.5 1 PUFF INH IH SCH (10:31)
[2021-01-23 11:24] VITALS: BP 118/55
== END 2021-01-23 15:30 | disposition home health service (06) ==
LOC: INPGRE 14:03 → EMEROOGRE 14:03 → INPGRE 17:24
PROVIDERS: ADMIT Family Medicine; ATTEND Family Medicine